=== PATIENT | male | born 1985 | race Hispanic/Latino ===

== ENCOUNTER 2018-05-17 11:47 | Emergency (ER) | payer OTHER ==
[~2018-05-17] VITALS: Ht 175.3 cm; Wt 82.3 kg
[2018-05-17] MEDS ORDERED: KETOROLAC TROMETHAMINE 10 MG TAB PO ONE (13:00)
[2018-05-17] MEDS ORDERED: KETO10TAB PO (13:19)
--- NOTE | 2018-05-17 13:23 | REP ---
Clinical: Nontraumatic hip pain. Technique: Frontal view of the pelvis with neutral and frog lateral views of the left hip. Findings: Osseous structures and joint spaces are intact and normal. Hip joints appear symmetric on frontal pelvic radiograph. No acute fracture dislocation. No evidence for healed injury. No significant degenerative or congenital abnormalities are appreciated. Surrounding soft tissues are unremarkable. Impression: Essentially age-appropriate pelvis and left hip series. Electronically Signed by Wilfredo Shepherd MD 05/17/2018 01:14 P
[2018-05-17 13:26] VITALS: BP 129/67
== END 2018-05-17 13:29 | disposition home or self-care (01) ==
LOC: M ED 11:47
DX: M25.552 Pain in left hip (principal)